=== PATIENT | female | born 1975 | race Caucasian/White ===

== ENCOUNTER 2017-02-02 22:36 | Emergency (ER) | payer OTHER ==
[2017-02-02 22:44] VITALS: BP 122/80; BMI 25.3
[2017-02-03] MEDS ORDERED: SODIUM CHLORIDE 1,000 ML IV STA (00:30)
[2017-02-03] MEDS ORDERED: morphine CARPU-JECT 4 MG/1 ML DISP.SYRIN IVPUSH ONE (00:30)
[2017-02-03] MEDS ORDERED: ONDANSETRON 4 MG/2 ML VIAL IVPUSH ONE (00:30)
--- NOTE | 2017-02-03 00:36 | PDOC ---
History of Present Illness - General Chief Complaint: Pain, Acute Stated Complaint: STOMACH PAIN Time Seen by Provider: 02/03/17 00:19 History Source: Patient, Erp Programmer Used (Boyfriend) Exam Limitations: Language Barrier - History of Present Illness Travel History: No Initial Comments: 02/03/17 00:32 42yo Female patient w/ PmHx: Abdominoplasty, Tubal Ligation presents to ED c/o epigastric abdominal pain that began last week Monday. Patient took OTC medications for nausea and pain, which pain subsided, but return Monday. Patient now reports 10 epigastric pain. LNMP: Jan 10. She denies fever, CP, back pain, diff breathing, or any other complaints at this time. Timing/Duration: reports: getting worse. denies: constant, changing over time, intermittent, resolved prior to arrival, gone now, other Quality: reports: severe. denies: mild, moderate, aching, burning, cramping, dullness, fullness, sharpness, stabbing, throbbing, other Abdominal Pain Onset Location: reports: epigastric. denies: RUQ, LUQ, RLQ, LLQ , periumbilical, suprapubic, generalized abdomen, flank, unknown, other Pain Radiation: reports: no radiation. denies: RUQ, LUQ, RLQ, LLQ, epigastric, periumbilical, flank, groin, scapula, shoulder, chest, back, other Activities at Onset: reports: no specific activity. denies: none, exertion, emotional upset, rest, sleep, eating, working, sexual intercourse, other Treatment Prior to Arrive: improves with: analgesics. worse with: antacids, cold pack, heat, laxative, enema, other Aggravating Factors: worse with: None, Defecation, Eating, Emotional upset, Exertion, [place], Movement, Voiding, Change in position Alleviating Factors: worse with: None, Belching, Shallow Breathing, Defecation, Eating, Holding Breath, Passing Gas, Change in Position, Rest, Voiding, Vomiting Past History - Travel Traveled outside of the country in the last 30 days: No Close contact w/someone who was outside of country & ill: No - Past Medical History Allergies/Adverse Reactions: Allergies Allergy/AdvReac Type Severity Reaction Status Date / Time No Known Allergies Allergy Verified 02/02/17 22:43 Home Medications: Ambulatory Orders NK [No Known Home Medication] 02/03/17 COPD: No Other medical history: PATIENT DENIES MEDICAL HX - Surgical History Abdominal Surgery: (TUMMY TUCK) - Suicide/Smoking/Psychosocial Hx Smoking History: Never smoked Hx Alcohol Use: No Drug/Substance Use Hx: No Review of Systems - Review of Systems Able to Perform ROS?: Yes Is the patient limited Greenlandic proficient: No ABD/GI: Yes: Nausea, Poor Appetite (Decreased appetite), Vomiting, Abdominal cramping (Epigastric Pain). No: Diarrhea : No: Burning, Dysuria, Flank Pain, Hematuria Musculoskeletal: No: Back Pain All Other Systems: Reviewed and Negative *Physical Exam - Vital Signs Last Vital Signs Temp Pulse Resp BP Pulse Ox 98.3 F 86 16 122/80 96 02/02/17 22:39 02/02/17 22:39 02/02/17 22:39 02/02/17 22:39 02/02/17 22:39 - Physical Exam General Appearance: Yes: Nourished, Appropriately Dressed, Moderate Distress. No: Apparent Distress, Mild Distress, Severe Distress Respiratory/Chest: positive: Lungs Clear, Normal Breath Sounds. negative: Chest Tender, Respiratory Distress, Accessory Muscle Use, Labored Respiration, Rapid RR, Decreased Breath Sounds, Rhonchi, Stridor, Wheezing Cardiovascular: positive: Regular Rhythm, Regular Rate Gastrointestinal/Abdominal: positive: Tender, Soft, Decreased BS, Guarding, Rebound, Tenderness. negative: Normal Bowel Sounds, Flat, Protuberent, Distended Musculoskeletal: positive: Normal Inspection. negative: CVA Tenderness, Decreased Range of Motion, Vertebral Tenderness Extremity: positive: Normal Capillary Refill, Normal Inspection, Normal Range of Motion. negative: Pedal Edema, Swelling, Calf Tenderness, Erythema, Inflammation Integumentary: positive: Normal Color, Dry, Warm Neurologic: positive: die maker stamping II-XII NML intact, Fully Oriented, Alert, Normal Mood/ Affect, Normal Response, Motor Strength /5 ED Treatment Course - LABORATORY CBC & Chemistry Diagram: 02/03/17 01:00 02/03/17 01:00 - RADIOLOGY Radiology Studies Ordered: Category Date Time Status GALLBLADDER US [US] Stat Ultrasound 02/03/17 00:30 Ordered *DC/Admit/Observation/Transfer Diagnosis at time of Disposition: Gastroenteritis - Discharge Dispostion Disposition: HOME Condition at time of disposition: Improved Admit: No - Referrals Referrals: Laika Bautista MD [Primary Care Provider] - Romeo Landaverde DO [Staff Physician] - - Patient Instructions Printed Discharge Instructions: DI for Viral Gastroenteritis -- Adult Additional Instructions: Lashell un seguimiento con menendez proveedor de atencin primaria la prxima semana para lily evaluacin adicional. Adems, llame al Dr. Landaverde (Gastroenterologa ) para analizar el tratamiento adicional. Motrin o Tylenol para el dolor segn sea necesario. Evite las comidas picantes y grasosas, el alcohol en delroy momento. Follow up with your primary care provider next week for further evaluation. Also , call Dr. Landaverde (Gastroenterology) to discuss further work-up. Motrin or Tylenol for pain as needed. Avoid spicy, greasy foods, alcohol at this time. Print Language: TUNISIAN - Post Discharge Activity Forms/Work/School Notes: Back to Work
[2017-02-03] MEDS ORDERED: morphine CARPU-JECT 8 MG/1 ML DISP.SYRIN ONE (00:49)
[2017-02-03] MEDS ORDERED: ONDANSETRON 4 MG/2 ML VIAL ONE (00:49)
--- NOTE | 2017-02-03 00:57 | PDOC ---
*Physical Exam - Vital Signs Last Vital Signs Temp Pulse Resp BP Pulse Ox 98.3 F 86 16 122/80 96 02/02/17 22:39 02/02/17 22:39 02/02/17 22:39 02/02/17 22:39 02/02/17 22:39 ED Treatment Course - LABORATORY CBC & Chemistry Diagram: 02/03/17 01:00 02/03/17 01:00 Medical Decision Making - Medical Decision Making 02/03/17 00:57 agree with care from PATTERN LAYOUT WORKER Jose *DC/Admit/Observation/Transfer Diagnosis at time of Disposition: Gastroenteritis - Discharge Dispostion Disposition: HOME Condition at time of disposition: Improved - Referrals Referrals: Romeo Landaverde DO [Staff Physician] - Lakia Bautista MD [Primary Care Provider] - - Patient Instructions Printed Discharge Instructions: DI for Viral Gastroenteritis -- Adult Additional Instructions: Lashell un seguimiento con menendez proveedor de atencin primaria la prxima semana para lily evaluacin adicional. Adems, llame al Dr. Landaverde (Gastroenterologa ) para analizar el tratamiento adicional. Motrin o Tylenol para el dolor segn sea necesario. Evite las comidas picantes y grasosas, el alcohol en delroy momento. Follow up with your primary care provider next week for further evaluation. Also , call Dr. Landaverde (Gastroenterology) to discuss further work-up. Motrin or Tylenol for pain as needed. Avoid spicy, greasy foods, alcohol at this time. Print Language: [place] ISLANDER - Post Discharge Activity Forms/Work/School Notes: Back to Work
[2017-02-03 01:05] LABS: BASO # 0.1 # (0.1-1); BASO % 0.6 % (0-2.0); EOS # 0.2 # (0-4.5); EOS % 1.9 % (0-4.5); LYMPH # 2.6 (8-40); MCH 24.4 pg (25.7-33.7); MCHC 31.9 g/dl (32.0-36.0); MEAN CELL VOLUME 76.5 fl (80-96); MEAN PLT VOLUME 7.5 fl (7.5-11.1); NEUT # 8.4 # (42.8-82.8); NEUT % 68.7 % (42.8-82.8); PLATELET COUNT 380 K/MM3 (134-434); RDW 15.6 % (11.6-15.6); WHITE BLOOD COUNT 12.3 K/mm3 (4.0-10.0)
[2017-02-03 01:32] LABS: URINE APPEARANCE SLCLOUDY; URINE BILIRUBIN NEGATIVE (NEGATIVE); URINE BLOOD 1+ (NEGATIVE); URINE COLOR STRAW; URINE GLUCOSE (UA) NEGATIVE (NEGATIVE); URINE KETONE NEGATIVE (NEGATIVE); URINE LEUK ESTERASE NEGATIVE (NEGATIVE); URINE NITRITE NEGATIVE (NEGATIVE); URINE PROTEIN NEGATIVE (NEGATIVE); URINE UROBILINOGEN NEGATIVE mg/dL (0.2-1.0)
[2017-02-03 01:33] LABS: ALBUMIN 3.7 g/dl (3.4-5.0); AMYLASE 68 U/L (25-115); ANION GAP 8 (8-16); BILIRUBIN,DIRECT < 0.2 mg/dL (0.0-0.2); BILIRUBIN,TOTAL 0.2 mg/dL (0.2-1.0); CALCIUM 8.9 mg/dL (8.5-10.1); CO2 26 mmol/L (21-32); CREATININE 0.7 mg/dL (0.55-1.02); GLUCOSE,RANDOM 105 mg/dL (74-106); SGOT/AST 18 U/L (15-37); SGPT/ALT 34 U/L (12-78)
[2017-02-03 01:34] LABS: ALK PHOS 98 U/L (45-117)
[2017-02-03 01:40] LABS: URINE BACTERIA FEW /hpf (NONE SEEN); URINE MUCUS RARE; URINE RBC 1 /hpf (0-3); URINE WBC 4 /hpf (3-5)
[2017-02-03] MEDS ORDERED: PANTOPRAZOLE SODIUM 40 MG in SODIUM CHLORIDE 100 ML IVPB ONE (03:16)
[2017-02-03] MEDS ORDERED: PANTOPRAZOLE SODIUM 40 MG/100 ML BAG IVPB ONE (03:21)
[2017-02-03 06:24] VITALS: PULSE 84; TEMP 98
[2017-02-03 10:06] LABS: URINE LEUK ESTERASE Negative (NEGATIVE)
--- NOTE | 2017-02-03 13:49 | EKG ---
Test Reason : Blood Pressure : / mmHG Vent. Rate : 081 BPM Atrial Rate : 081 BPM P-R Int : 142 ms QRS Dur : 096 ms QT Int : 378 ms P-R-T Axes : 033 -08 015 degrees QTc Int : 439 ms NORMAL SINUS RHYTHM WITH SINUS ARRHYTHMIA INCOMPLETE RIGHT BUNDLE BRANCH BLOCK MINIMAL VOLTAGE CRITERIA FOR LVH, MAY BE NORMAL VARIANT NO PREVIOUS ECGS AVAILABLE Confirmed by CLARA LORA MD ([id number]) on 02/03/2017 1:48:40 PM Referred By: Confirmed By:CLARA LORA MD
== END 2017-02-03 06:25 | disposition home or self-care (01) ==
LOC: JER 22:36
PROC: 3E0337Z Introduction of Electrolytic and Water Balance Substance into Peripheral Vein, Percutaneous Approach (ICD-10-PCS; principal; 2017-02-02)
PROC: 3E033GC Introduction of Other Therapeutic Substance into Peripheral Vein, Percutaneous Approach (ICD-10-PCS; 2017-02-02)
PROC: 3E033GC Introduction of Other Therapeutic Substance into Peripheral Vein, Percutaneous Approach (ICD-10-PCS; 2017-02-02)
PROC: 3E033NZ Introduction of Analgesics, Hypnotics, Sedatives into Peripheral Vein, Percutaneous Approach (ICD-10-PCS; 2017-02-02)
DX: K52.9 Noninfective gastroenteritis and colitis, unspecified (principal)
CPT/HCPCS: 36415; 74177-TC; 76705-TC; 80048; 80076; 81003; 81015; 82150; 83690; 84703; 85025; 93005; 93010; 99283-25

== ENCOUNTER 2017-06-30 09:34 | Emergency (ER) | payer OTHER ==
[2017-06-30 10:06] VITALS: BMI 26.4
--- NOTE | 2017-06-30 10:27 | PDOC ---
History of Present Illness - General Chief Complaint: Pain Stated Complaint: PAIN/ HEAD, ABD Time Seen by Provider: 06/30/17 09:40 - History of Present Illness Initial Comments: Patient is a 42 year old female, with no significant pmh, who presents to the emergency department complaining of LORENZ, shoulder and back pain. Pt states she began having a L sided LORENZ in the V1-V2 distribution for the past two days, which she describes as "squeezing", with no exacerbating/alleviating symptoms, no vision involvement or other neuro symptoms. Also endorsing chronic pain in R shoulder, with intermittent erythema, not worsened by arm movement but tender to palpation. Pt also complaining of epispinal lumbar pain, also chronic and intermittent and denies any recent trauma to area. Pt also with epigastric discomfort, occasionally worsened by food, with one episode of NBNB emesis this AM. Pt with two prior fall during past winter, but no recent trauma to any affected areas. Pt has never had LORENZ before. Denies any recent travel or sick contacts. Has not been seen by PMD since last year in August. Does not take any meds chronically. Patient denies chest pain, shortness of breath or dizziness. Denies fever, chills, nausea, diarrhea and constipation. Denies dysuria, frequency, urgency and hematuria. Allergies: None Past surgical history: Abdominoplasty, Social History: No smoking, drug, alcohol use PMD: Dr. Waddell 06/30/17 10:43 Past History - Past Medical History Allergies/Adverse Reactions: Allergies Allergy/AdvReac Type Severity Reaction Status Date / Time No Known Allergies Allergy Verified 02/02/17 22:43 Home Medications: Ambulatory Orders Famotidine [Pepcid] 20 mg PO PRN #14 tablet 06/30/17 Anemia: No Cardiac Disorders: No COPD: No Kidney Stones: No Lung CA: No - Surgical History Abdominal Surgery: Yes (SUZANNA BELLO) Cholecystectomy: No GI Surgery: No Lung Surgery: No Neurologic Surgery: No - Immunization History Immunization Up to Date: No - Suicide/Smoking/Psychosocial Hx Smoking History: Never smoked Have you smoked in the past 12 months: No Information on smoking cessation initiated: No Hx Alcohol Use: No Drug/Substance Use Hx: No Review of Systems - Review of Systems Comments:: GENERAL/CONSTITUTIONAL: No fever or chills. No weakness. HEAD, EYES, EARS, NOSE AND THROAT: No change in vision. No ear pain or discharge. No sore throat. CARDIOVASCULAR: No chest pain or shortness of breath RESPIRATORY: No cough, wheezing, or hemoptysis. GASTROINTESTINAL: +epigastric discomfort, nausea, vomiting; no diarrhea or constipation. GENITOURINARY: No dysuria, frequency, or change in urination. MUSCULOSKELETAL: +Pain in back and R shoulder; No neck pain. SKIN: No rash NEUROLOGIC: + L sided LORENZ; no vertigo, loss of consciousness, or change in strength/sensation. ENDOCRINE: No increased thirst. No abnormal weight change HEMATOLOGIC/LYMPHATIC: No anemia, easy bleeding, or history of blood clots. ALLERGIC/IMMUNOLOGIC: No hives or skin allergy. 06/30/17 10:43 *Physical Exam - Vital Signs Last Vital Signs Temp Pulse Resp BP Pulse Ox 97.6 F 88 18 116/81 98 06/30/17 10:02 06/30/17 10:02 06/30/17 10:02 06/30/17 10:02 06/30/17 10:02 - Physical Exam Comments: GENERAL: MA woman, Awake, alert, and fully oriented, in no acute distress HEAD: No signs of trauma, normocephalic, atraumatic EYES: PERRLA, EOMI, sclera anicteric, conjunctiva clear ENT: Auricles normal inspection, hearing grossly normal, nares patent, oropharynx clear without exudates. Moist mucosa NECK: Diffuse mild soft tissue swelling of R shoulder. Normal ROM, supple, no lymphadenopathy, JVD, or masses LUNGS: No distress, speaks full sentences, clear to auscultation bilaterally HEART: Regular rate and rhythm, normal S1 and S2, no murmurs, rubs or gallops, peripheral pulses normal and equal bilaterally. ABDOMEN: TTP in epigastrium; Soft, normoactive bowel sounds. No guarding, no rebound. No masses + epispinal tender in lumbar spin. EXTREMITIES : Normal inspection, Normal range of motion, no edema. No clubbing or cyanosis. NEUROLOGICAL: Cranial nerves II through XII grossly intact. Normal speech, normal gait, no focal sensorimotor deficits SKIN: Warm, Dry, normal turgor, no rashes or lesions noted 06/30/17 10:43 ED Treatment Course - LABORATORY CBC & Chemistry Diagram: 06/30/17 11:25 06/30/17 13:11 Medical Decision Making - Medical Decision Making 42 year old female, with no significant pmh, who presents to the emergency department complaining of LORENZ, shoulder and back pain. Will order for tylenol, imaging of lower back. 06/30/17 10:52 Ab U/S negative. XR of lumbar spine negative. Pt labs normal. Pt pain improved with tylenol, VSS. Will discharge home with outpt follow up with PCP and Dr. Taylor 06/30/17 14:49 *DC/Admit/Observation/Transfer Diagnosis at time of Disposition: Gastritis Qualifiers: Gastritis type: unspecified gastritis Chronicity: chronic Gastritis bleeding: without bleeding Qualified Code(s): K29.50 - Unspecified chronic gastritis without bleeding - Discharge Dispostion Disposition: HOME Condition at time of disposition: Good Decision to Admit order: No - Prescriptions Prescriptions: Famotidine [Pepcid] 20 mg PO PRN #14 tablet - Referrals Referrals: Lakia Bautista MD [Primary Care Provider] - 1 week Jose Manuel Taylor MD [Staff Physician] - 1 week - Patient Instructions Additional Instructions: During your visit to the [facility] ED, you were evaluated for LORENZ, body aches and pain in your stomach. Lab tests and imaging which were all negative. You are being discharged home with outpatient follow-up with your primary care provider in one week and are being provided a referral to see our bone char operator, Dr. Taylor. Please take tylenol 650mg every four hours if you experience headaches until your symptoms resolve. You have been provided a prescription for pepcid. Please take this medication as needed for your epigastric pain, likely secondary to gastritis. You are being provided a referral for follow-up with Dr. Taylor, our bone char operator for further evaluation of epigastric pain. Please call the number provided in this packet to schedule an appointment within one week. If you experience any of the following symptoms, please return to the ED: - Persistent fevers/chills >3 days - Any bleeding or change in your stool - Changes in vision, numbness/weakness in any extremities, or persistent dizziness/loss of consciousness - Any new or concerning symptoms - Post Discharge Activity
[2017-06-30] MEDS ORDERED: ACETAMINOPHEN 325 MG TABLET (FP) PO ONE (10:31)
[2017-06-30] MEDS ORDERED: ACETAMINOPHEN 325 MG TABLET (FP) ONE (10:33)
[2017-06-30] MEDS ORDERED: PANTOPRAZOLE SODIUM 40 MG VIAL IVPUSH ONE (11:21)
--- NOTE | 2017-06-30 11:37 | PDOC ---
Attending Attestation - Resident Resident Name: ApmadhaviAsh - ED Attending Attestation I have performed the following: I have examined & evaluated the patient, The case was reviewed & discussed with the resident, I agree w/resident's findings & plan, Exceptions are as noted - HPI HPI: 06/30/17 11:35 42y F no pmhx presenst with complaint o fheadache, described as gradual onset, squeezing, left sided w/o associated vision or numbness/tingling/weakness. pt also endrosing some mild epgiastric pain that sometimes worsens with genny dintake with an episode of nbnb vomting of food contents. denies any cp, sob, franklin, palpitatiosn, lightheadedness, numbness/tingling/weakness, urinary/bowel incontinenece, diarrhea. EXAM: well appaering, no distress PULM: cta w/o wheezing/rales CARD: rrr, no m/r/g ABD: soft nontender EXT: no edema, normal movement will ck labs to r/o pancreatitis, suspect may be due to gastritis and her headache is a tension headache - Physicial Exam PE: 07/01/17 20:23 see above - Medical Decision Making labs reviewed US negative pt feeling better will dc with pmd fu Heart Score/ECG Review - ECG Impressions Comment:: 06/30/17 17:36 Twelve-lead EKG was performed and reviewed by me. There is normal sinus rhythm with a rate of 56 Incomplete right bundle wrench block
[2017-06-30 11:55] LABS: BASO % 0.9 % (0-2.0); EOS % 0.8 % (0-4.5); HEMATOCRIT 37.5 % (32.4-45.2); HEMOGLOBIN 11.6 GM/dL (10.7-15.3); MCH 23.7 pg (25.7-33.7); MEAN CELL VOLUME 76.3 fl (80-96); MEAN PLT VOLUME 8.4 fl (7.5-11.1); MONO % 8.2 % (3.8-10.2); NEUT % 68.1 % (42.8-82.8); PLATELET COUNT 393 K/MM3 (134-434); RBC 4.92 M/mm3 (3.60-5.2); RDW 16.7 % (11.6-15.6); WHITE BLOOD COUNT 9.3 K/mm3 (4.0-10.0)
[2017-06-30 12:03] LABS: HCG,QUALITATIVE URINE NEGATIVE
[2017-06-30 12:08] LABS: URINE APPEARANCE CLOUDY; URINE BILIRUBIN NEGATIVE (<2.0 mg/dL); URINE BLOOD NEGATIVE (NEGATIVE); URINE COLOR YELLOW; URINE GLUCOSE (UA) NEGATIVE (NEGATIVE); URINE KETONE NEGATIVE (NEGATIVE); URINE NITRITE NEGATIVE (NEGATIVE); URINE PROTEIN NEGATIVE (NEGATIVE); URINE UROBILINOGEN NEGATIVE mg/dL (0.2-1.0)
[2017-06-30 12:16] LABS: URINE LEUK ESTERASE 1+ (NEGATIVE)
[2017-06-30 12:18] LABS: EPI CELLS MANY /HPF (FEW); URINE BACTERIA RARE /hpf (NONE SEEN); URINE MUCUS FEW
[2017-06-30] MEDS ORDERED: PANTOPRAZOLE SODIUM 40 MG VIAL ONE (12:54)
[2017-06-30 13:51] LABS: ALBUMIN 3.7 g/dl (3.4-5.0); ALK PHOS 93 U/L (45-117); ANION GAP 4 (8-16); BILIRUBIN,TOTAL 0.2 mg/dL (0.2-1.0); BLOOD UREA NITROGEN 14 mg/dL (7-18); CALCIUM 8.9 mg/dL (8.5-10.1); CHLORIDE 110 mmol/L (98-107); CO2 28 mmol/L (21-32); CREATININE 0.5 mg/dL (0.55-1.02); GLUCOSE,RANDOM 73 mg/dL (74-106); SGPT/ALT 16 U/L (12-78); SODIUM 142 mmol/L (136-145)
[2017-06-30 13:52] LABS: LIPASE 114 U/L (73-393); SGOT/AST 16 U/L (15-37)
[2017-06-30 14:47] VITALS: BP 122/93; PULSE 79; TEMP 98.1
--- NOTE | 2017-07-04 00:44 | EKG ---
Test Reason : Blood Pressure : / mmHG Vent. Rate : 056 BPM Atrial Rate : 056 BPM P-R Int : 140 ms QRS Dur : 094 ms QT Int : 418 ms P-R-T Axes : 011 -02 014 degrees QTc Int : 403 ms SINUS BRADYCARDIA INCOMPLETE RIGHT BUNDLE BRANCH BLOCK BORDERLINE ECG WHEN COMPARED WITH ECG OF 03-FEB-2017 01:37, NO SIGNIFICANT CHANGE WAS FOUND Confirmed by SANDER SOTO MD ([id number]) on 07/04/2017 12:44:24 AM Referred By: Confirmed By:SANDER SOTO MD
== END 2017-06-30 15:02 | disposition home or self-care (01) ==
LOC: JER 09:34
PROC: 3E033GC Introduction of Other Therapeutic Substance into Peripheral Vein, Percutaneous Approach (ICD-10-PCS; principal; 2017-06-30)
DX: K29.50 Unspecified chronic gastritis without bleeding (principal)
CPT/HCPCS: 36415; 72100-TC-FY; 76705-TC; 80053; 81003; 81015; 82550; 83690; 84484; 84703; 85025; 93005; 93010; 96374; 99284-25

== ENCOUNTER 2017-09-17 13:53 | Emergency (ER) | payer OTHER ==
[2017-09-17 14:01] VITALS: BP 147/85; PULSE 80; TEMP 97.7; BMI 26.2
[2017-09-17] MEDS ORDERED: ONDANSETRON *ODT* 4 MG TABLET SL ONE (15:06)
[2017-09-17] MEDS ORDERED: MECLIZINE HCL 25 MG TABLET (FP) PO ONE (15:06)
--- NOTE | 2017-09-17 15:06 | PDOC ---
History of Present Illness - General Chief Complaint: Pain Stated Complaint: HEADACHE & NAUSEA Time Seen by Provider: 09/17/17 14:35 History Source: Patient Exam Limitations: No Limitations - History of Present Illness Initial Comments: CHIEF COMPLAINT: 42 y/o afebrile female with no significant PMH c/o dizziness and nausea x 2 weeks. HISTORY OF PRESENT ILLNESS: The patient states she came back from a vacation in the [facility] [place] 2 weeks ago and at that time her symptoms began. She feels like the room is spinning around her and she is nauseous. She states today it got worse. She took 2 advil at 2pm and feels better. She denies f/c, neck pain, changes in vision/hearing, cough, hemoptysis, v/d, CP, SOB, hematuria , dysuria. She also admits she only drinks 2-3 glasses of water daily. Vital signs on arrival are within normal limits. REVIEW OF SYSTEMS: GENERAL/CONSTITUTIONAL: No fever/chills. No weakness. No weight change. HEAD, EYES, EARS, NOSE AND THROAT: No change in vision. No ear pain or discharge. No sore throat. CARDIOVASCULAR: No chest pain or shortness of breath. RESPIRATORY: No cough, wheezing, or hemoptysis. GASTROINTESTINAL: +nausea. No vomiting, diarrhea. No abd pain. GENITOURINARY: No dysuria, frequency, or change in urination. MUSCULOSKELETAL: No joint or muscle swelling or pain. No neck or back pain. SKIN: No rash or easy bruising. NEUROLOGIC: +vertigo. No headache, loss of consciousness, or loss of sensation. PHYSICAL EXAM: GENERAL: The patient is awake, alert, and fully oriented, in no acute distress. She is well appearing and ambulatory. HEAD: Normal with no signs of trauma. ENT: Pupils equal, round and reactive to light, extraocular movements intact, sclera anicteric, conjunctiva clear. Neck supple. LUNGS: Clear to auscultation bilaterally. Normal excursion. No respiratory distress or use of accessory muscles. CV: RRR, S1/S2, no MRG. Cap refill < 2 sec. ABDOMEN: Soft, non-distended, non-tender even to deep palpation, no hepatomegaly or splenomegaly, no masses. EXTREMITIES: Normal range of motion, no edema. NEUROLOGICAL: Normal speech, normal gait. CN II-XII grossly intact. Normal finger to nose. NOrmal rapid alternating movements. SKIN: Warm, dry, normal turgor, no rashes or lesions noted. Past History - Past Medical History Allergies/Adverse Reactions: Allergies Allergy/AdvReac Type Severity Reaction Status Date / Time No Known Allergies Allergy Verified 09/17/17 14:01 Home Medications: Ambulatory Orders Meclizine HCl [Antivert -] 25 mg PO TID PRN #15 tablet 09/17/17 Anemia: No Cardiac Disorders: No COPD: No Kidney Stones: No Lung CA: No - Surgical History Abdominal Surgery: Yes (TUMMY TUCK) Cholecystectomy: No GI Surgery: No Lung Surgery: No Neurologic Surgery: No - Immunization History Immunization Up to Date: No - Suicide/Smoking/Psychosocial Hx Smoking History: Never smoked Have you smoked in the past 12 months: No Hx Alcohol Use: No Drug/Substance Use Hx: No *Physical Exam - Vital Signs Last Vital Signs Temp Pulse Resp BP Pulse Ox 97.7 F 80 18 147/85 99 09/17/17 13:59 09/17/17 13:59 09/17/17 13:59 09/17/17 13:59 09/17/17 13:59 Medical Decision Making - Medical Decision Making A/P: 42 y/o female with signs and symptoms of vertigo. Plan is as follows: 1. SL zofran 2. PO meclizine 3. Reassess The patient verbalizes understanding of all instructions, has no further questions and is awaiting discharge. *DC/Admit/Observation/Transfer Diagnosis at time of Disposition: Vertigo - Discharge Dispostion Disposition: HOME Condition at time of disposition: Improved - Prescriptions Prescriptions: Meclizine HCl [Antivert -] 25 mg PO TID PRN #15 tablet PRN Reason: Vertigo - Referrals Referrals: Lakia Bautista MD [Primary Care Provider] - - Patient Instructions Printed Discharge Instructions: DI for Vertigo Additional Instructions: Discharge Instructions: -You had vertigo; it was most likely caused by your airplane travel -A prescription has been sent to your pharmacy; take ONLY if you develop symptoms -Drink AT LEAST 64oz of water daily -Follow up with your doctor within 1 week -Return to the ER with any worsening or concerning symptoms Instrucciones de descarga: -Tienes vrtigo; lo ms probable es que haya sido causado por menendez viaje en [place] -[place] receta turcios sido enviada a menendez farmacia; emmanuel SOLAMENTE si desarrolla sntomas -Adelita POR LO MENOS 64 oz de agua al da -Siga con menendez doctor dentro de 1 semana -Volver a la magdy de urgencias con cualquier empeoramiento o sntomas Print Language: MALAWIAN - Post Discharge Activity
[2017-09-17] MEDS ORDERED: ONDANSETRON *ODT* 4 MG TABLET ONE (15:13)
[2017-09-17] MEDS ORDERED: MECLIZINE HCL 12.5 MG TABLET ONE ×2 (15:14→15:18)
== END 2017-09-17 17:17 | disposition home or self-care (01) ==
LOC: JER 13:53
DX: R42 Dizziness and giddiness (principal)
CPT/HCPCS: 99282-25; Q0162

== ENCOUNTER 2018-10-30 15:21 | Emergency (ER) | payer OTHER | END 2018-10-30 18:37 | disposition home or self-care (01) | LOC: JER 15:21 ==

== ENCOUNTER 2020-09-14 12:11 | Emergency (ER) | payer OTHER ==
[2020-09-14 12:16] VITALS: TEMP 98.2; BMI 30.6
[2020-09-14] MEDS ORDERED: KETOROLAC TROMETHAMINE 30 MG/1 ML VIAL IVPUSH ONE (12:44)
[2020-09-14] MEDS ORDERED: KETOROLAC TROMETHAMINE 30 MG/1 ML VIAL ONE (13:04)
[2020-09-14 13:23] LABS: ALBUMIN 4.1 g/dl (3.4-5.0); CALCIUM 8.8 mg/dL (8.5-10.1)
[2020-09-14 13:27] LABS: CREATININE 0.6 mg/dL (0.55-1.3)
[2020-09-14 13:28] LABS: BILIRUBIN,TOTAL 0.2 mg/dL (0.2-1); TOT PROT 7.4 g/dl (6.4-8.2)
[2020-09-14 13:33] LABS: BASO % 0.6 % (0-2.0); EOS % 0.9 % (0-4.5); HEMOGLOBIN 11.9 GM/dL (10.7-15.3); LYMPH % 21.8 % (8-40); MCH 23.9 pg (25.7-33.7); MCHC 32.2 g/dl (32.0-36.0); MEAN CELL VOLUME 74.3 fl (80-96); MEAN PLT VOLUME 8.3 fl (7.5-11.1); MONO % 6.2 % (3.8-10.2); NEUT % 70.5 % (42.8-82.8); PLATELET COUNT 358 10^3/uL (134-434); RBC 4.98 M/mm3 (3.60-5.2); RDW 16.8 % (11.6-15.6); URINE APPEARANCE CLEAR; URINE BILIRUBIN NEGATIVE (NEGATIVE); URINE COLOR YELLOW; URINE GLUCOSE (UA) NEGATIVE (NEGATIVE); URINE KETONE NEGATIVE (NEGATIVE); URINE LEUK ESTERASE NEGATIVE (NEGATIVE); URINE NITRITE NEGATIVE (NEGATIVE); URINE PROTEIN NEGATIVE (NEGATIVE); URINE UROBILINOGEN 0.2 mg/dL (0.2-1.0); WHITE BLOOD COUNT 10.5 K/mm3 (4.0-10.0)
[2020-09-14 18:50] VITALS: BP 126/82; PULSE 85
== END 2020-09-14 18:50 | disposition home or self-care (01) ==
LOC: JER 12:11
PROC: 3E0333Z Introduction of Anti-inflammatory into Peripheral Vein, Percutaneous Approach (ICD-10-PCS; principal; 2020-09-14)
DX: N83.292 Other ovarian cyst, left side (principal)
CPT/HCPCS: 36415; 74177-TC; 76830-TC; 76856-TC; 80053; 81003; 84703; 85025; 86850; 86900; 86901; 87077; 87086; 87186; 96374; 99285-25

== ENCOUNTER 2021-04-05 21:16 | Emergency (ER) | payer OTHER ==
[2021-04-05 21:28] VITALS: BP 135/89; PULSE 100; TEMP 98.9; BMI 31.5
[2021-04-05] MEDS ORDERED: PANTOPRAZOLE 20 MG TABLET PO ONE ×2 (22:50→22:56)
[2021-04-05] MEDS ORDERED: ONDANSETRON 4 MG TABLET PO ONE ×2 (22:50→22:54)
[2021-04-05] MEDS ORDERED: MAG HYDROX/AL HYDROX/SIMETH 30 ML UNIT-DOSE CUP PO ONE (22:51)
[2021-04-05] MEDS ORDERED: MAG HYDROX/AL HYDROX/SIMETH 30 ML UNIT-DOSE CUP ONE (22:54)
[2021-04-05 23:10] LABS: URINE APPEARANCE CLEAR; URINE BILIRUBIN NEGATIVE (NEGATIVE); URINE COLOR YELLOW; URINE GLUCOSE (UA) NEGATIVE (NEGATIVE); URINE KETONE NEGATIVE (NEGATIVE); URINE LEUK ESTERASE NEGATIVE (NEGATIVE); URINE NITRITE NEGATIVE (NEGATIVE); URINE PROTEIN NEGATIVE (NEGATIVE); URINE UROBILINOGEN 0.2 mg/dL (0.2-1.0)
== END 2021-04-06 00:45 | disposition home or self-care (01) ==
LOC: JER 21:16
DX: K29.60 Other gastritis without bleeding (principal)
CPT/HCPCS: 81003; 84703; 87086; 93005; 93010; 99284-25